=== PATIENT | male | born 1975 | race Caucasian/White ===

== ENCOUNTER → 2017-04-22 | Outpatient (CLI) | payer OTHER ==
[~2017-04-22] MED LIST: AMOX-559 PO
--- NOTE | 2017-04-26 08:20 | RT HOLTER TEST ---
FACILITY: [facility] PATIENT NAME: DARY EATON : [id number] MR: [id number] V: [id number] EXAM DATE: ORDERING PHYSICIAN: FRANCISCO TORREZ TECHNOLOGIST: Arnaud Hook-up date: 2017-04-22 14:16:00 Duration: 47:59:00 Test Indications: PALPITATIONS Medications: NONE LISTED [id number] QRS complexes 23 Ventricular ectopics which represent <1 % of total QRS comp. 2 Supraventricular ectopics which represent <1 % of total QRS comp. * Paced QRS complexes which represent % of total QRS comp. VENTRICULAR ECTOPY 23 Isolated 0 Bigeminal Cycles 0 Couplets 0 Runs 0 Beats in Runs * Beats LONGEST at * BPM at :: -- * Beats FASTEST at * BPM at :: -- SUPRAVENTRICULAR ECTOPY 2 Isolated 0 Couplets 0 Runs 0 Beats in Runs * Beats LONGEST at * BPM at :: -- * Beats FASTEST at * BPM at :: -- HEART RATES 40 MIN at 06:57:12 2017-04-24 76 AVG 164 MAX at 18:36:52 2017-04-22 LONGEST RR 1.776 secs at 07:16:08 2017-04-24 S-T LEVELS Channel 1 -12.800 mm MIN at 14:16:00 2017-04-22 -12.800 mm MAX at 14:16:00 2017-04-22 Channel 2 -12.800 mm MIN at 14:16:00 2017-04-22 -12.800 mm MAX at 14:16:00 2017-04-22 Maximum heart rate is sinus tachycardia at 164 beats per minute (BPM). Minimum heart rate is sinus br adycardia at 40 BPM. Multiple diary entries noted. The patient was in sinus tachycardia while skiing without dysrhythmia. One entry of "driving- irregular" was associated with a PAC. Another entry of "driving" was made shortly after he had a PVC. All other diary entries were associated wit h normal sinus rhythm. There were 40 isolated PVCs. There were 2 isolated PACs. No runs were noted. The patient was noted to have sinus arrhythmi a at times as well. No other arrhythmias were noted. Confirmed by DILSHAD MORRIS ([id number]) on 04/26/2017 8:19:44 AM Referred By: Overread By: DILSHAD MORRIS
== END ==
LOC: RESP 13:48
PROVIDERS: ATTEND Family Medicine
DX: R00.2 Palpitations (principal)
CPT/HCPCS: 93225; 93226